=== PATIENT | male | born 1990 | race Caucasian/White ===

== ENCOUNTER 2023-02-26 14:19 | Inpatient (IN) | payer OTHER ==
[~2023-02-26] VITALS: Ht 182.9 cm; Wt 101.9 kg
[2023-02-26 17:50] VITALS: PULSE 96; RESP 17; O2SAT 96
[2023-02-26] MEDS ORDERED: MORPHINE SULFATE INJ 2 MG/ml SYRG IV PRN (18:30)
[2023-02-26] MEDS ORDERED: DOCUSATE SOD 100 MG CAP PO PRN (18:30)
[2023-02-26] MEDS ORDERED: ONDANSETRON HCL 4 MG/2 ML VIAL IV PRN (18:30)
[2023-02-26] MEDS ORDERED: VANCOMYCIN PER PHARMACY 0 MG IV SCH (18:30)
[2023-02-26 20:00] VITALS: PULSE 70; RESP 18; O2SAT 93
[2023-02-26 22:00] VITALS: BP 105/46; PULSE 70; RESP 18; TEMP 98; O2SAT 93
[2023-02-27] MEDS ORDERED: VANCOMYCIN 1GM/250ML 250 ML IV ONE ×2 (03:00)
[2023-02-27 05:00] VITALS: BP 115/55; PULSE 69; RESP 16; TEMP 98.1; O2SAT 95
[2023-02-27] MEDS ORDERED: SULF400T11 PO (06:11)
[2023-02-27 06:24] LABS: Alanine Aminotransferase 21 U/L (7-40); Albumin 4.3 g/dL (3.2-4.8); Alkaline Phosphatase 64 U/L (46-116); Anion Gap 7 (5-15); Aspartate Aminotransferase 18 U/L (13-40); BUN/Creatinine Ratio 11.8 (10.0-20.0); Bilirubin, Total 0.7 mg/dL (0.2-1.0); Blood Urea Nitrogen 10 mg/dL (9-23); Calcium 9.1 mg/dL (8.7-10.4); Carbon Dioxide 26 mmol/L (20-30); Chloride 107 mmol/L (98-107); Glucose 102 mg/dL (74-106); Potassium 3.9 mmol/L (3.5-5.1); Sodium 140 mmol/L (136-145); Total Protein 6.9 g/dL (5.7-8.2)
[2023-02-27 07:21] LABS: Basophils # (auto) 0 10 ^3/uL (0-0.2); Basophils % (auto) 0.3 % (0.0-2.0); CRP High Sensitivity 4.72 mg/dL (<1.0); Eosinophils # (auto) 0 10 ^3/uL (0-0.8); Eosinophils % (auto) 0.3 % (0.0-7.0); Hemoglobin 14.5 g/dL (13.5-17.5); Lymphocytes # (auto) 1.8 10 ^3/uL (0.4-5.4); Lymphocytes % (auto) 19.4 % (10.0-50.0); Mean Corpuscular Hemoglobin 30.1 pg (28.0-32.0); Mean Corpuscular Hgb Conc. 33.8 g/dL (32.0-36.0); Mean Corpuscular Volume 89.1 fL (80.0-100.0); Monocytes # (auto) 0.6 10 ^3/uL (0-1.3); Monocytes % (auto) 6.1 % (0.0-12.0); Neutrophils # (auto) 6.7 10 ^3/uL (1.6-8.6); Neutrophils % (auto) 73.9 % (37.0-80.0); Red Blood Cells 4.83 10^6/uL (4.5-5.90); Red Cell Distribution Width 13.8 % (11.8-14.3); White Blood Cell 9.1 10^3/uL (4.4-10.8)
[2023-02-27 07:54] LABS: Erythrocyte Sedimentation Rate 8 mm/hr (0-20)
[2023-02-27 08:00] VITALS: BP 140/81; PULSE 54; RESP 16; TEMP 97.5; O2SAT 98
[2023-02-27] MEDS: VANCOMYCIN 1GM/250ML 250 ML IV SCH ×2 (09:52→17:47)
[2023-02-27] MEDS ORDERED: HYDROcodone-ACET 5/325MG TAB PO PRN (10:45)
[2023-02-27] MEDS ORDERED: KETOROLAC TROMETH 30 MG/ML 1ML VIAL IV PRN (10:45)
[2023-02-27] MEDS: CEFTRIAXONE SODIUM 2 GM in D5W 5% 100 ML IV SCH (12:06)
[2023-02-27 13:00] VITALS: BP 111/63; PULSE 58; RESP 16; TEMP 98.2; O2SAT 98
[2023-02-27 16:55] VITALS: BP 143/76; PULSE 78; RESP 20; TEMP 98.7; O2SAT 95
[2023-02-27 18:39] LABS: Urine Amorphous Crystal FEW /hpf (None Seen); Urine Bacteria NONE SEEN /hpf (None Seen); Urine Blood Negative /uL (Negative); Urine Clarity Clear (Clear); Urine Color Yellow (Yellow); Urine Protein, UAD Negative (Negative); Urine Specific Gravity 1.016 (1.001-1.035); Urine Urobilinogen Normal (Negative); Urine WBC 2 /hpf (0 - 3)
[2023-02-27 20:00] VITALS: PULSE 78; RESP 16; O2SAT 96
[2023-02-27 22:00] VITALS: BP 135/77; PULSE 78; RESP 16; TEMP 98.7; O2SAT 96
[2023-02-28] MEDS: VANCOMYCIN 1GM/250ML 250 ML IV SCH ×3 (02:07→18:02)
[2023-02-28 05:00] VITALS: BP 122/78; PULSE 80; RESP 16; TEMP 98.2; O2SAT 97
[2023-02-28 06:24] LABS: Basophils # (auto) 0 10 ^3/uL (0-0.2); Basophils % (auto) 0.3 % (0.0-2.0); Eosinophils # (auto) 0.1 10 ^3/uL (0-0.8); Eosinophils % (auto) 0.7 % (0.0-7.0); Hematocrit 43.9 % (41.0-53.0); Hemoglobin 14.9 g/dL (13.5-17.5); Lymphocytes # (auto) 1.9 10 ^3/uL (0.4-5.4); Lymphocytes % (auto) 22.8 % (10.0-50.0); Mean Corpuscular Hemoglobin 30.4 pg (28.0-32.0); Mean Corpuscular Volume 89.6 fL (80.0-100.0); Monocytes # (auto) 0.5 10 ^3/uL (0-1.3); Monocytes % (auto) 5.9 % (0.0-12.0); Neutrophils # (auto) 5.9 10 ^3/uL (1.6-8.6); Neutrophils % (auto) 70.3 % (37.0-80.0); Nucleated Red Blood Cells % 0.2 %; Red Cell Distribution Width 13.8 % (11.8-14.3); White Blood Cell 8.4 10^3/uL (4.4-10.8)
[2023-02-28 06:26] LABS: Chloride 106 mmol/L (98-107); Potassium 4.3 mmol/L (3.5-5.1); Sodium 140 mmol/L (136-145)
[2023-02-28 06:27] LABS: Anion Gap 8 (5-15); Calcium 9.4 mg/dL (8.7-10.4); Carbon Dioxide 26 mmol/L (20-30)
[2023-02-28 06:35] LABS: BUN/Creatinine Ratio 15.6 (10.0-20.0); Blood Urea Nitrogen 14 mg/dL (9-23); Glucose 98 mg/dL (74-106)
[2023-02-28 08:00] VITALS: PULSE 67; RESP 16; O2SAT 97
[2023-02-28 09:00] VITALS: BP 130/71; PULSE 67; RESP 16; TEMP 98.7; O2SAT 97
[2023-02-28] MEDS: CEFTRIAXONE SODIUM 2 GM in D5W 5% 100 ML IV SCH ×2 (10:20→10:30)
[2023-02-28 13:00] VITALS: BP 142/75; PULSE 82; RESP 14; TEMP 98.1; O2SAT 97
[2023-02-28 17:05] VITALS: BP 130/79; PULSE 88; RESP 14; TEMP 99.2; O2SAT 95
[2023-02-28 22:00] VITALS: BP 126/77; PULSE 80; RESP 18; TEMP 98.3; O2SAT 97
[2023-03-01] MEDS: VANCOMYCIN 1GM/250ML 250 ML IV SCH ×3 (01:47→18:02)
[2023-03-01 05:00] VITALS: BP 126/68; PULSE 61; RESP 18; TEMP 97.9; O2SAT 98
[2023-03-01 08:00] VITALS: PULSE 71; O2SAT 95
[2023-03-01 09:00] VITALS: BP 124/71; PULSE 71; RESP 22; TEMP 98; O2SAT 95
[2023-03-01] MEDS ORDERED: CEFTRIAXONE SODIUM 2 GM in D5W 5% 100 ML IV ONE (10:00)
[2023-03-01] MEDS: CEFTRIAXONE SODIUM 2 GM in D5W 5% 100 ML IV SCH (10:31)
[2023-03-01 13:00] VITALS: BP 126/73; PULSE 74; RESP 20; TEMP 98.2; O2SAT 98
[2023-03-01 17:00] VITALS: BP 139/77; PULSE 72; RESP 22; TEMP 98.6; O2SAT 100
[2023-03-01 22:00] VITALS: BP 131/77; PULSE 74; RESP 18; TEMP 98.7; O2SAT 95
[2023-03-02] MEDS: VANCOMYCIN 1GM/250ML 250 ML IV SCH ×2 (02:00→10:00)
[2023-03-02 05:00] VITALS: BP 117/63; PULSE 63; RESP 18; TEMP 97.9; O2SAT 96
[2023-03-02 09:00] VITALS: BP 127/72; PULSE 70; RESP 20; TEMP 98.1; O2SAT 96
[2023-03-02] MEDS: CEFTRIAXONE SODIUM 2 GM in D5W 5% 100 ML IV SCH (10:00)
[2023-03-02] MEDS ORDERED: DOXY100C4 PO (12:08)
[2023-03-02 12:09] VITALS: BP 127/72; PULSE 70; RESP 20; TEMP 98.1; O2SAT 96
[2023-03-02 13:00] VITALS: BP 139/58; PULSE 70; RESP 18; TEMP 98.5; O2SAT 92
== END 2023-03-02 13:00 | disposition home or self-care (01) | DRG 603 ==
LOC: EDBD → TELE-WESTW 17:28 → WEST WING 18:46
PROVIDERS: ADMIT Internal Medicine; ATTEND Internal Medicine
DX: L03.115 Cellulitis of right lower limb (principal); D72.829 Elevated white blood cell count, unspecified; M70.51 Other bursitis of knee, right knee; I10 Essential (primary) hypertension; Z86.79 Personal history of other diseases of the circulatory system; Z80.0 Family history of malignant neoplasm of digestive organs; Z86.14 Personal history of Methicillin resistant Staphylococcus aureus infection
CPT/HCPCS: 36415; 71045; 73700; 73721; 80048; 80053; 80202; 81001; 85025; 85652; 86141; 87040; 87081; 93306; G0378; J0696; J7060